=== PATIENT | female | born 1990 | race Caucasian/White ===

== ENCOUNTER 2017-12-08 08:02 | Emergency (ER) | payer OTHER ==
[~2017-12-08] VITALS: Ht 162.6 cm; Wt 82.4 kg
[~2017-12-08 08:02] MED LIST: DOXY25TA8 PO; FOLI800T PO; ONDA4TAB10 SL; PEDICHW50 PO; PYRI50TA77 PO
[2017-12-08 08:05] VITALS: TEMP 36.6; Ht 162.6 cm; Wt 82.4 kg
[2017-12-08] MEDS ORDERED: SODIUM CHLORIDE 0.9% 1000ML 1,000 ML IV STA (08:28)
[2017-12-08] MEDS ORDERED: ONDA4TAB46 PO (08:31)
--- NOTE | 2017-12-08 08:40 | EMERGENCY ROOM VISIT NOTE ---
History First contact with patient: 08:09 Chief Complaint: DEHYDRATION Stated Complaint: DEHYDRATED, 7 WEEKS History of Present Illness The patient is a 27 year old female who presents to the Emergency Room via private vehicle with complaints of "dehydrated, 7 weeks ". The patient states that as of tomorrow she will be 7 weeks , and feels dehydrated. She states that she has been taking Zofran daily, and Unisom B6. She states that her SENIOR CONSULTING MANAGER [place]. She saw him last on Thursday. She had some vaginal spotting at that time. Since then it has not gotten worse it is just a little bit of dark blood in the morning. There is minimal lower pelvic cramping sensation of which she notes may be from not being able to move her bowels. She notes that she is drinking about 16 ounces of water daily. She feels nauseated but no vomiting. She also has some minimal chest tightness and shortness of breath which is not new. There is minimal reflux. This is her first . Review of Systems A complete 10-point Review of Systems was discussed with the patient, with pertinent positives and negatives listed in the History of Present Illness. All remaining Review of Systems questions can be considered negative unless otherwise specified. Past Medical/Surgical History A complete 10-point Review of Systems was discussed with the patient, with pertinent positives and negatives listed in the History of Present Illness. All remaining Review of Systems questions can be considered negative unless otherwise specified. Social History Smoking Status: Never Smoker Current/Historical Medications Scheduled Cephalexin Monohydrate (Keflex), 500 MG PO BID Doxylamine Succinate (Sleep) (Unisom), 1 TAB PO HS Folic Acid (Folic Acid), 1 TAB PO DAILY Pediatric Multiple Vitamin W/ (Flintstones Chewable), 2 TAB PO DAILY Scheduled PRN Ondansetron Hcl (Zofran), 4 MG PO QAM PRN for Nausea Physical Exam Vital Signs Date Time Temp Pulse Resp B/P (MAP) Pulse Ox O2 Delivery O2 Flow Rate FiO2 12/08/17 11:51 76 20 103/64 100 12/08/17 08:05 36.6 80 18 96/64 100 Physical Exam VITAL SIGNS - Vital signs and nursing notes were reviewed. Stable. Slightly hypotensive. GENERAL -27-year-old female appearing her stated age who is in no acute distress. Communicates well with provider and answers questions appropriately. SKIN - Without rashes. No meningeal or petechial rash. HEAD - NC/AT. EYES - PERRL with EOMI bilaterally. Sclera anicteric. EARS - No deformities of external structures noted on gross examination bilaterally. NOSE - Midline and without cyanosis. No epistaxis or purulent drainage noted. MOUTH/OROPHARYNX - Without perioral cyanosis. NECK - Neck with FROM. Supple to palpation. No nuchal rigidity. LUNGS - Chest wall symmetric without accessory muscle use, intercostals retractions, or central cyanosis. Normal vesicular breath sounds CTA B/L. No wheezes, rales, or rhonchi appreciated. CARDIAC - RRR with S1/S2. No murmur, rubs, or gallops appreciated. ABDOMEN - Abdominal contour normal without pulsations or visible masses. BS normoactive all four quadrants. No tenderness, palpable masses, hepatosplenomegaly, or ascites noted. EXTREMITIES - No clubbing or peripheral cyanosis. No pretibial edema present.+5/ 5 strength noted in UE/LE bilaterally. NEUROLOGIC - Cranial nerves II through XII grossly intact. Sensory intact to light touch throughout. PSYCH - A&O, and cooperates fully with examiner. Pt is very pleasant and interacts well with examiner. Medical Decision & Procedures ER Provider Diagnostic Interpretation: <14 WKS SINGLE CLINICAL HISTORY: 27 years-old Female presenting with vaginal spotting, reported estimated gestational age 6 weeks 6 days with estimated date of delivery 07/28/2018; estimated date of delivery 07/26/2018 by prior ultrasound. TECHNIQUE: Real-time grayscale and M-mode Doppler ultrasound imaging of the pelvis was performed using a transabdominal probe. Color and spectral Doppler ultrasound imaging of the adnexa was also performed. COMPARISON: 11/27/2017. FINDINGS: Uterus: Single live intrauterine . [place]-rump length measures 13 mm corresponding to an estimated gestational age of 7 weeks 3 days with an estimated date of delivery 07/25/2018. heart rate 155 beats per minute. Anteverted uterus. Normal amniotic fluid volume. Unable to accurately assess placental implantation secondary to early gestational age. No perigestational fluid to suggest hemorrhage. Cervix long and closed. Right adnexum: Right ovary normal. Right ovary measures 3.2 x 2.0 x 2.2 cm. Normal color Doppler flow and arterial and venous waveforms within the ovarian parenchyma. Left adnexum: Left ovary normal. Left ovary measures 3.5 x 3.3 x 3.5 cm. Normal color Doppler flow and arterial and venous waveforms within the ovarian parenchyma. Other: No free fluid. IMPRESSION: Single live intrauterine with measurements concordant with prior ultrasound. No perigestational hemorrhage is evident. No sonographic abnormality. Electronically signed by: Stefano Daly M.D. 12/08/2017 11:14 AM Dictated Date/Time: 12/08/2017 11:11 AM Laboratory Results 12/08/17 09:30 Red Blood Count 4.44, Mean Corpuscular Volume 89.2, Mean Corpuscular Hemoglobin 32.2, Mean Corpuscular Hemoglobin Concent 36.1, Mean Platelet Volume 11.9, Neutrophils (%) (Auto) 68.1, Lymphocytes (%) (Auto) 23.0, Monocytes (%) (Auto) 8.1, Eosinophils (%) (Auto) 0.4, Basophils (%) (Auto) 0.3, Neutrophils # (Auto) 4.78, Lymphocytes # (Auto) 1.62, Monocytes # (Auto) 0.57, Eosinophils # (Auto) 0.03, Basophils # (Auto) 0.02 12/08/17 09:30 Test 12/08/17 09:30 White Blood Count 7.03 K/uL (4.8-10.8) Red Blood Count 4.44 M/uL (4.2-5.4) Hemoglobin 14.3 g/dL (12.0-16.0) Hematocrit 39.6 % (37-47) Mean Corpuscular Volume 89.2 fL (80-100) Mean Corpuscular Hemoglobin 32.2 pg (25-34) Mean Corpuscular Hemoglobin Concent 36.1 g/dl (32-36) Platelet Count 178 K/uL (130-400) Mean Platelet Volume 11.9 fL (7.4-10.4) Neutrophils (%) (Auto) 68.1 % Lymphocytes (%) (Auto) 23.0 % Monocytes (%) (Auto) 8.1 % Eosinophils (%) (Auto) 0.4 % Basophils (%) (Auto) 0.3 % Neutrophils # (Auto) 4.78 K/uL (1.4-6.5) Lymphocytes # (Auto) 1.62 K/uL (1.2-3.4) Monocytes # (Auto) 0.57 K/uL (0.11-0.59) Eosinophils # (Auto) 0.03 K/uL (0-0.5) Basophils # (Auto) 0.02 K/uL (0-0.2) RDW Standard Deviation 40.5 fL (36.4-46.3) RDW Coefficient of Variation 12.4 % (11.5-14.5) Immature Granulocyte % (Auto) 0.1 % Immature Granulocyte # (Auto) 0.01 K/uL (0.00-0.02) Prothrombin Time 10.7 SECONDS (9.0-12.0) Prothromb Time International Ratio 1.0 (0.9-1.1) Activated Partial Thromboplast Time 26.6 SECONDS (21.0-31.0) Partial Thromboplastin Ratio 1.0 Urine Color DK YELLOW Urine Appearance CLOUDY (CLEAR) Urine pH 5.5 (4.5-7.5) Urine Specific [place] 1.027 (1.000-1.030) Urine Protein NEG (NEG) Urine Glucose (UA) NEG (NEG) Urine Ketones 4+ (NEG) Urine Occult Blood TRACE (NEG) Urine Nitrite NEG (NEG) Urine Bilirubin NEG (NEG) Urine Urobilinogen NEG (NEG) Urine Leukocyte Esterase TRACE (NEG) Urine WBC (Auto) 5-10 /hpf (0-5) Urine RBC (Auto) 0-4 /hpf (0-4) Urine Hyaline Casts (Auto) 1-5 /lpf (0-5) Urine Epithelial Cells (Auto) >30 /lpf (0-5) Urine Bacteria (Auto) 2+ (NEG) Urine Pathogenic Casts /lpf (0) Urine Mucus PRESENT (NONE PRSENT) Anion Gap 6.0 mmol/L (3-11) Est Creatinine Clear Calc Drug Dose 128.3 ml/min Estimated GFR () 139.2 Estimated GFR (Non- 120.1 BUN/Creatinine Ratio 12.6 (10-20) Calcium Level 9.1 mg/dl (8.5-10.1) Total Bilirubin 0.7 mg/dl (0.2-1) Aspartate Amino Transf (AST/SGOT) 14 U/L (15-37) Alanine Aminotransferase (ALT/SGPT) 27 U/L (12-78) Alkaline Phosphatase 45 U/L (45-117) Total Protein 8.0 gm/dl (6.4-8.2) Albumin 4.0 gm/dl (3.4-5.0) Globulin 4.0 gm/dl (2.5-4.0) Albumin/Globulin Ratio 1.0 (0.9-2) Thyroid Stimulating Hormone (TSH) 0.993 uIu/ml (0.300-4.500) Medications Administered Medications (Trade) Dose Ordered Sig/Wilver Route Start Time Stop Time Status Last Admin Dose Admin Sodium Chloride 1,000 ml @ 999 mls/hr Q1H1M STAT IV 12/08/17 08:28 12/08/17 09:28 DC 12/08/17 09:41 999 MLS/HR Medical Decision Patient was seen and evaluated as above. Review was performed of nursing notes and vital signs. After obtaining a thorough history and physical examination the above work up was performed. She presents to us today with what she describes as minimal vaginal bleeding/spotting in the morning. It is a dark brownish almost like dry blood she states. No bright red blood. She notes minimal pelvic discomfort which she believes is secondary to not moving her bowels in 7 days. She notes minimal food intake and fluid since that time. She has been taking Zofran. She feels as though she is dehydrated. I did elect to obtain a ultrasound which was normal. CBC reveals no leukocytosis or anemia. Coags normal. Chemistry panel does reveal slight hyponatremia at 135 and hypokalemia at 3.4. No evidence of kidney or liver failure. TSH normal. The patient's urine reveals 4+ ketones, and trace occult blood. Trace leukocytes, 5-10 white blood cells, greater than 30 epithelial cells and 2+ bacteria with urine mucus. She notes that her SENIOR CONSULTING MANAGER is aware of her vaginal spotting and saw them on Thursday when this began. Given her normal ultrasound, and her normal workup here and after liter of fluid she was feeling much better I believe she is stable for outpatient management. She will be treated for the UTI. I did elect to obtain a bedside EKG which was normal sinus rhythm, rate of 58 bpm. No ectopy or ischemic change. No change compared to previous on 27 November. This was obtained secondary to the patient's complaint of ongoing chest pressure. I do not suspect this to be cardiac in nature. It is better with certain movements. I suspect this to be musculoskeletal. She was offered fecal disimpaction here today however declined , and was recommended to use liquid glycerin Fleet suppositories. She is to call her SENIOR CONSULTING MANAGER upon discharge from here to schedule follow-up. The patient was educated upon management, had questions answered prior to discharge, and was discharged home in good condition. She was educated upon the risk of any medication with . After a thorough discussion and group decision making it was decided that Keflex would be initiated. Of additional note, the patient noted that when she followed with her SENIOR CONSULTING MANAGER of [facility] in [place], on Thursday she was experiencing the vaginal spotting. In our system I do not have record of Rh testing, and did call the on-call OB/ [employer] to ensure that this was performed. I spoke with Dr. Araceli Hearn at 4:46 PM. She informed me that she would check in the system to see if the patient had received this and if this had not been done she notes that they will call the patient to ensure it is completed. Case was discussed with the attending physician. In the evaluation and treatment of this patient the following differential diagnoses were entertained: Miscarriage, UTI, constipation, among others. Impression Primary Impression: Dehydration Additional Impressions: Constipation Hypokalemia Departure Information Dispostion Home / Self-Care Condition GOOD Prescriptions Cephalexin Monohydrate (Keflex) 500 Mg Cap 500 MG PO BID for 7 Days, #14 CAP Prov: Bean Zaidi PA-C 12/08/17 Referrals No Doctor, Assigned (PCP) Patient Instructions Diet High Fiber, My [facility] Additional Instructions You were seen in the emergency department for dehydration and no bowel movement. I recommend a soft diet, with plenty of fiber. Please increase fluids Keflex 500 mg every 12 hours for 7 days. This is for the UTI. As we discussed no medication is absolutely safe in , however after weighing benefit versus risk believe this is reasonable. I recommend a liquid glycerin suppository, please use as directed. Please refer to the attached picture. These can be purchased at a local pharmacy. This is [id number]. If no bowel movement 24 hours please return. Please call your family doctor and your SENIOR CONSULTING MANAGER later today to schedule follow-up. Please inform them upon your visit here and your symptoms. <14 WKS SINGLE CLINICAL HISTORY: 27 years-old Female presenting with vaginal spotting, reported estimated gestational age 6 weeks 6 days with estimated date of delivery 07/28/2018; estimated date of delivery 07/26/2018 by prior ultrasound. TECHNIQUE: Real-time grayscale and M-mode Doppler ultrasound imaging of the pelvis was performed using a transabdominal probe. Color and spectral Doppler ultrasound imaging of the adnexa was also performed. COMPARISON: 11/27/2017. FINDINGS: Uterus: Single live intrauterine . [place]-rump length measures 13 mm corresponding to an estimated gestational age of 7 weeks 3 days with an estimated date of delivery 07/25/2018. heart rate 155 beats per minute. Anteverted uterus. Normal amniotic fluid volume. Unable to accurately assess placental implantation secondary to early gestational age. No perigestational fluid to suggest hemorrhage. Cervix long and closed. Right adnexum: Right ovary normal. Right ovary measures 3.2 x 2.0 x 2.2 cm. Normal color Doppler flow and arterial and venous waveforms within the ovarian parenchyma. Left adnexum: Left ovary normal. Left ovary measures 3.5 x 3.3 x 3.5 cm. Normal color Doppler flow and arterial and venous waveforms within the ovarian parenchyma. Other: No free fluid. IMPRESSION: Single live intrauterine with measurements concordant with prior ultrasound. No perigestational hemorrhage is evident. No sonographic abnormality. Problem Qualifiers
[2017-12-08 09:38] LABS: BASO % 0.3 %; BASO ABS # 0.02 K/uL (0-0.2); EOS % 0.4 %; EOS ABS # 0.03 K/uL (0-0.5); HEMATOCRIT 39.6 % (37-47); HEMOGLOBIN 14.3 g/dL (12.0-16.0); IG# 0.01 K/uL (0.00-0.02); LYMPH ABS # 1.62 K/uL (1.2-3.4); MEAN CELL VOLUME 89.2 fL (80-100); MEAN CORPUSCULAR HEMOGLOBIN 32.2 pg (25-34); MEAN CORPUSCULAR HGB CONC 36.1 g/dl (32-36); MEAN PLATELET VOLUME 11.9 fL (7.4-10.4); MONO % 8.1 %; MONO ABS # 0.57 K/uL (0.11-0.59); NEUT % 68.1 %; NEUT ABS # 4.78 K/uL (1.4-6.5); PLATELET COUNT 178 K/uL (130-400); RED CELL DISTRIBUTION WIDTH CV 12.4 % (11.5-14.5); RED CELL DISTRIBUTION WIDTH SD 40.5 fL (36.4-46.3); WHITE BLOOD COUNT 7.03 K/uL (4.8-10.8)
[2017-12-08 09:46] LABS: PTT PATIENT 26.6 SECONDS (21.0-31.0)
[2017-12-08 09:56] LABS: CALCIUM 9.1 mg/dl (8.5-10.1); CREATININE 0.69 mg/dl (0.60-1.20); POTASSIUM 3.4 mmol/L (3.5-5.1)
--- NOTE | 2017-12-08 11:16 | DIAGNOSTIC IMAGING REPORT ---
<14 WKS SINGLE CLINICAL HISTORY: 27 years-old Female presenting with vaginal spotting, reported estimated gestational age 6 weeks 6 days with estimated date of delivery 07/28/2018; estimated date of delivery 07/26/2018 by prior ultrasound. TECHNIQUE: Real-time grayscale and M-mode Doppler ultrasound imaging of the pelvis was performed using a transabdominal probe. Color and spectral Doppler ultrasound imaging of the adnexa was also performed. COMPARISON: 11/27/2017. FINDINGS: Uterus: Single live intrauterine . [place]-rump length measures 13 mm corresponding to an estimated gestational age of 7 weeks 3 days with an estimated date of delivery 07/25/2018. heart rate 155 beats per minute. Anteverted uterus. Normal amniotic fluid volume. Unable to accurately assess placental implantation secondary to early gestational age. No perigestational fluid to suggest hemorrhage. Cervix long and closed. Right adnexum: Right ovary normal. Right ovary measures 3.2 x 2.0 x 2.2 cm. Normal color Doppler flow and arterial and venous waveforms within the ovarian parenchyma. Left adnexum: Left ovary normal. Left ovary measures 3.5 x 3.3 x 3.5 cm. Normal color Doppler flow and arterial and venous waveforms within the ovarian parenchyma. Other: No free fluid. IMPRESSION: Single live intrauterine with measurements concordant with prior ultrasound. No perigestational hemorrhage is evident. No sonographic abnormality. Electronically signed by: Stefano Daly M.D. 12/08/2017 11:14 AM Dictated Date/Time: 12/08/2017 11:11 AM
[2017-12-08] MEDS ORDERED: CEPH500C PO (11:31)
[2017-12-08 11:51] VITALS: BP 103/64; PULSE 76; O2SAT 100
== END 2017-12-08 11:55 | disposition home or self-care (01) ==
LOC: C.EDB 08:03
DX: O99.89 Other specified diseases and conditions complicating pregnancy, childbirth and the puerperium (principal); Z3A.01 Less than 8 weeks gestation of pregnancy; E86.0 Dehydration; K59.00 Constipation, unspecified; E87.6 Hypokalemia

== ENCOUNTER 2017-12-18 07:25 | Emergency (ER) | payer OTHER ==
[~2017-12-18] VITALS: Ht 162.6 cm; Wt 81.5 kg
[~2017-12-18 07:25] MED LIST changes: -ONDA4TAB10 SL; +ONDA4TAB46 PO; -PYRI50TA77 PO
[2017-12-18 07:30] VITALS: TEMP 36.8; Ht 162.6 cm; Wt 81.5 kg
[2017-12-18] MEDS ORDERED: SODIUM CHLORIDE 0.9% 1000ML 1,000 ML IV STA (07:51)
[2017-12-18] MEDS ORDERED: ONDANSETRON INJ 2 MG/ML 2 ML VIAL IV STA (07:51)
[2017-12-18] MEDS ORDERED: ACETAMINOPHEN IV 100 ML IV ONE (08:00)
[2017-12-18] MEDS ORDERED: BISA1SUP4 PR (08:03)
[2017-12-18] MEDS ORDERED: DOCU100C31 PO (08:03)
[2017-12-18 08:36] LABS: BASO % 0.4 %; BASO ABS # 0.02 K/uL (0-0.2); EOS % 0.6 %; EOS ABS # 0.03 K/uL (0-0.5); HEMATOCRIT 39.1 % (37-47); HEMOGLOBIN 13.7 g/dL (12.0-16.0); IG# 0.01 K/uL (0.00-0.02); LYMPH % 24.3 %; LYMPH ABS # 1.31 K/uL (1.2-3.4); MEAN CELL VOLUME 89.1 fL (80-100); MEAN CORPUSCULAR HEMOGLOBIN 31.2 pg (25-34); MEAN PLATELET VOLUME 11.5 fL (7.4-10.4); MONO ABS # 0.43 K/uL (0.11-0.59); NEUT % 66.5 %; NEUT ABS # 3.58 K/uL (1.4-6.5); PLATELET COUNT 195 K/uL (130-400); RED CELL DISTRIBUTION WIDTH CV 12.6 % (11.5-14.5); RED CELL DISTRIBUTION WIDTH SD 40.2 fL (36.4-46.3); WHITE BLOOD COUNT 5.38 K/uL (4.8-10.8)
[2017-12-18 08:43] LABS: PTT PATIENT 26.1 SECONDS (21.0-31.0)
[2017-12-18 09:00] LABS: CREATININE 0.61 mg/dl (0.60-1.20)
[2017-12-18 09:01] LABS: ALBUMIN 3.6 gm/dl (3.4-5.0); CALCIUM 8.9 mg/dl (8.5-10.1); POTASSIUM 3.4 mmol/L (3.5-5.1)
[2017-12-18 09:03] LABS: TOTAL PROTEIN 7.2 gm/dl (6.4-8.2)
--- NOTE | 2017-12-18 09:15 | DIAGNOSTIC IMAGING REPORT ---
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 cardiac activity is confirmed. There is a small subchorionic hematoma measuring 1.6 cm immediately right lateral of the gestational sac. Right ovary measures 3 cm with normal vascular flow. Left ovary measures 4.5 cm with a complex and/or hemorrhagic 2.6 cm corpus luteum cyst. IMPRESSION: 1. Single, viable intrauterine of approximately 8 weeks 4 days gestational age. 2. A heartbeat is confirmed. 3. Small subchorionic hematoma measuring 1.6 cm. 4. 2.6 cm complex and/or partially hemorrhagic left ovarian corpus luteum cyst. The above report was generated using voice recognition software. It may contain grammatical, syntax or spelling errors. Electronically signed by: Dajuan Booker M.D. 12/18/2017 9:13 AM Dictated Date/Time: 12/18/2017 9:09 AM
[2017-12-18 10:15] VITALS: BP 109/57; PULSE 68; O2SAT 99
--- NOTE | 2017-12-18 14:32 | EMERGENCY ROOM VISIT NOTE ---
ED Visit Note First contact with patient: 07:39 Chief Complaint: Abdominal cramping. History of Present Illness: Ms. Guerrero is a 27-year-old female who ambulates into the ED accompanied by a male friend complaining of abdominal cramping and vaginal spotting. Historically patient is 1 and para 0. Her EDC is July 25 and her LMP was October 05. She has been seen in this emergency department on November 27 for nausea and vomiting and on December 08 for dehydration. She is followed up with her primary care provider. She was found to have constipation and started on glycerin suppositories and stool softeners which she reports has caused her to have a bloody-maureen mucousy bowel movement about once a day since Thursday. Patient reports approximately 5 hours ago when she awoke to get ready for work she developed cramping in the lower abdomen with slight prominence on the right. Since that time she reports her pain is slightly decreased in intensity. Currently she rates her discomfort 6/10. Her pain is nonradiating. She has not identified any aggravating or alleviating factors related to the pain. Associated with her pain she reports she has been nauseated but has not vomited today. She did not have a bowel movement today. She does report she noted bloody vaginal spotting late last night but felt it was related her recent constipation and nausea/vomiting. She has not taken any medications for her discomfort prior to arrival at the hospital. She denies any fevers, chills, sweats, upper respiratory tract symptoms, cough, shortness of breath, upper abdominal pain, back/flank pain, urinary symptoms. Review of Systems: As noted above in history of present illness. All body systems were reviewed and found to be negative as noted above. Past Medical History: As noted above, asthma, vestibular migraines, and wisdom teeth extraction. Current Medications: Medications Dose Route/Sig Max Daily Dose Days Date Category Bisacodyl Laxative (Bisacodyl) 10 Mg Sup 10 Mg ID DAILY PRN 12/18/17 Reported Docusate Sodium 100 Mg Cap 100 Mg PO BID 7 12/18/17 Reported Zofran (Ondansetron HCl) 4 Mg Tab 4 Mg PO QAM PRN 12/08/17 Reported Unisom (Doxylamine Succinate (Sleep)) 25 Mg Tab 25 Mg PO HS 11/27/17 Reported Folic Acid 800 Mcg Tab 800 Mcg PO DAILY 4/20/18 Reported Flintstones Chewable (Pediatric Multiple Vitamin W/) 1 Chw Chw 2 Tab PO DAILY 11/27/17 Reported Allergies to Medications: Patient denies. Social History: Patient is currently employed; she feels safe in her home environment; she denies tobacco and alcohol use. Physical Examination: Vital Signs: Date Time Temp Pulse Resp B/P (MAP) Pulse Ox O2 Delivery O2 Flow Rate FiO2 12/18/17 10:15 68 18 109/57 99 12/18/17 09:21 64 18 98/62 100 Room Air 12/18/17 07:30 36.8 82 20 99/66 97 Room Air GENERAL: 27-year-old female in mild to moderate distress due to symptoms, nontoxic-appearing, afebrile and hemodynamically stable. NEUROLOGICAL: Awake, alert and oriented to person, place and time. Answering questions appropriately and following commands. Normal gait. Good hand eye coordination. No focal motor sensory deficits. SKIN: Warm, dry and pink. No soft tissue eruptions or trauma noted. HEENT: Atraumatic and normocephalic. PERRLA. Sclera white and conjunctiva pink. No drainage from naris. Oral cavity moist and pink. Pharynx is nonerythematous or edematous. Speech normal. No lymphadenopathy. Trachea midline. No jugular venous distention. BACK: No tenderness over the bony spine. No CVA tenderness. THORAX: Lungs sounds are clear to auscultation and equal bilaterally with symmetrical chest wall. No wheezing, rales or rhonchi. No crepitus, tenderness , subcutaneous air or deformities noted. HEART: Regular rate and rhythm. No gallops, rubs or murmurs are appreciated. ABDOMEN: Flat, soft and nontender. Positive bowel sounds in all quadrants. No guarding, rigidity or organomegaly. RECTAL: No external tags or hemorrhoids. Normal rectal tone. No palpable rectal masses. Heme-negative stools. PELVIC: Modified exam. External genitalia appears normal with no lesions or erythema. Vaginal exam is unremarkable with a slight whitish mucus-like drainage. The os was closed and nontender. No blood was noted in the vaginal vault. EXTREMITIES: Moves all extremities well on command and with purpose. All distal neurovascular statuses are intact and equal bilaterally. ED Course: Patient is assessed as noted above. Patient's medication list was reviewed. Laboratory Testing: Test 12/18/17 08:18 Range/Units White Blood Count 5.38 4.8-10.8 K/uL Red Blood Count 4.39 4.2-5.4 M/uL Hemoglobin 13.7 12.0-16.0 g/dL Hematocrit 39.1 37-47 % Mean Corpuscular Volume 89.1 80-100 fL Mean Corpuscular Hemoglobin 31.2 25-34 pg Mean Corpuscular Hemoglobin Concent 35.0 32-36 g/dl Platelet Count 195 130-400 K/uL Mean Platelet Volume 11.5 7.4-10.4 fL Neutrophils (%) (Auto) 66.5 % Lymphocytes (%) (Auto) 24.3 % Monocytes (%) (Auto) 8.0 % Eosinophils (%) (Auto) 0.6 % Basophils (%) (Auto) 0.4 % Neutrophils # (Auto) 3.58 1.4-6.5 K/uL Lymphocytes # (Auto) 1.31 1.2-3.4 K/uL Monocytes # (Auto) 0.43 0.11-0.59 K/uL Eosinophils # (Auto) 0.03 0-0.5 K/uL Basophils # (Auto) 0.02 0-0.2 K/uL RDW Standard Deviation 40.2 36.4-46.3 fL RDW Coefficient of Variation 12.6 11.5-14.5 % Immature Granulocyte % (Auto) 0.2 % Immature Granulocyte # (Auto) 0.01 0.00-0.02 K/uL Prothrombin Time 10.4 9.0-12.0 SECONDS Prothromb Time International Ratio 1.0 0.9-1.1 Activated Partial Thromboplast Time 26.1 21.0-31.0 SECONDS Partial Thromboplastin Ratio 1.0 Urine Color YELLOW Urine Appearance CLOUDY CLEAR Urine pH 7.0 4.5-7.5 Urine Specific [place] 1.017 1.000-1.030 Urine Protein NEG NEG Urine Glucose (UA) NEG NEG Urine Ketones NEG NEG Urine Occult Blood NEG NEG Urine Nitrite NEG NEG Urine Bilirubin NEG NEG Urine Urobilinogen NEG NEG Urine Leukocyte Esterase SMALL NEG Urine WBC (Auto) 1-5 0-5 /hpf Urine RBC (Auto) 5-10 0-4 /hpf Urine Hyaline Casts (Auto) 1-5 0-5 /lpf Urine Epithelial Cells (Auto) >30 0-5 /lpf Urine Bacteria (Auto) 2+ NEG Urine Pathogenic Casts 0-3 GRANULAR CASTS 0 /lpf Sodium Level 137 136-145 mmol/L Potassium Level 3.4 3.5-5.1 mmol/L Chloride Level 105 98-107 mmol/L Carbon Dioxide Level 23 21-32 mmol/L Anion Gap 8.0 3-11 mmol/L Blood Urea Nitrogen 6 7-18 mg/dl Creatinine 0.61 0.60-1.20 mg/dl Est Creatinine Clear Calc Drug Dose 144.4 ml/min Estimated GFR () 145.0 Estimated GFR (Non- 125.1 BUN/Creatinine Ratio 9.1 10-20 Random Glucose 89 70-99 mg/dl Calcium Level 8.9 8.5-10.1 mg/dl Total Bilirubin 0.5 0.2-1 mg/dl Aspartate Amino Transf (AST/SGOT) 11 15-37 U/L Alanine Aminotransferase (ALT/SGPT) 29 12-78 U/L Alkaline Phosphatase 36 45-117 U/L Total Protein 7.2 6.4-8.2 gm/dl Albumin 3.6 3.4-5.0 gm/dl Globulin 3.6 2.5-4.0 gm/dl Albumin/Globulin Ratio 1.0 0.9-2 Human Chorionic Gonadotropin, Quant [id number] mIU/mL Urine Culture: Pending Ultrasound: Was reviewed by myself and read by the radiologist showing a single, viable intrauterine of approximately 8 weeks 4 days gestational age, a confirmed heartbeat, a mall subchorionic hematoma measuring 1.6 cm and a 2.6 cm complex and/or partially hemorrhagic left ovarian corpus luteum cyst. Patient was hydrated with normal saline and received 4 mg of Zofran IV and 1 g of acetaminophen IV. Patient was reassessed multiple times during her stay in the emergency department. Patient's case was reviewed with Dr. Ji; we agreed on diagnostic approach, treatment, disposition and plan. Patient's case was consulted with Shyann Welch LOGISTICS PROJECT MANAGER; he recommended discharge to home, urine culture, continue antinausea medication and acetaminophen for pain and office follow-up. Patient was educated about today's findings and instructed on her treatment plan ; she verbalized understanding and agreement with this plan. Clinical Impression: Threatened miscarriage. Hematochezia. Decision-Making: Initially my differential diagnosis I considered threatened , miscarriage, PID, GI bleed, hemorrhoids and other causes. Disposition: Patient discharged home in stable condition accompanied by a girlfriend; prior to departure she was reassessed and subjectively reported she was feeling much better and rated her discomfort 1/10. Plan: Patient was encouraged to use 650 mg of acetaminophen every 6 hours as needed for pain. Patient was encouraged to stay well-hydrated with increased clear fluids. Patient was encouraged not to lift more than 10 pounds. Patient was encouraged to continue her other medications. Patient was encouraged to use a sanitary pad for definitive count on bleeding. Patient was encouraged to have vaginal rest until followed up with her LOGISTICS PROJECT MANAGER practitioner. Patient was encouraged to call her LOGISTICS PROJECT MANAGER practitioner and inform them about today's ED visit and request follow-up care and treatment. Patient was encouraged return the ED for worsening/uncontrolled pain, worsening bleeding, fevers, worsening bloody stools or any new/concerning symptoms.
== END 2017-12-18 10:16 | disposition home or self-care (01) ==
LOC: C.EDB 07:27
DX: O20.0 Threatened abortion (principal); K92.1 Melena; J45.909 Unspecified asthma, uncomplicated

== ENCOUNTER 2017-12-20 19:33 | Emergency (ER) | payer OTHER ==
[~2017-12-20] VITALS: Ht 162.6 cm; Wt 80.0 kg
[~2017-12-20 19:33] MED LIST changes: +BISA1SUP4 PR; +DOCU100C31 PO
[2017-12-20 19:38] VITALS: TEMP 36.3; Ht 162.6 cm; Wt 80.0 kg
[2017-12-20] MEDS ORDERED: METOCLOPRAMIDE HCL INJ 5 MG/ML 2 ML VIAL IV. STA (19:52)
[2017-12-20] MEDS ORDERED: SODIUM CHLORIDE 0.9% 1000ML 1,000 ML IV STA (19:52)
[2017-12-20] MEDS ORDERED: DiphenhydrAMINE HCL 50 MG/ML VIAL IV STA (19:52)
--- NOTE | 2017-12-20 19:57 | EMERGENCY ROOM VISIT NOTE ---
History Report prepared by Kelli: Mita Summers Under the Supervision of: Dr. Marco A Hernandes M.D. First contact with patient: 19:43 Chief Complaint: DEHYDRATION Stated Complaint: 9 WKS , DEHYDRATION, NAUSEA, VOMITING History of Present Illness The patient is a 27 year old white female with a past medical history of vestibular migraines and vertigo who presents to the ED with a cc of moderate dehydration beginning yesterday. Positive nausea and severe constipation. Negative cough, vomiting, or vaginal bleeding. She states she has taken Zofran and TUMS which did not modify her symptoms. She also states that she cannot even drink a bottle of water. The patient reports she has also been taking suppositories for her constipation and relates this to her abdominal cramping. She is also currently 9 weeks . Source of History: patient Onset: yesterday Position: abdomen Symptom Intensity: moderate Associated Symptoms: + nausea, No cough, No vomiting Note: Positive severe constipation. Negative vaginal bleeding. Review of Systems See HPI for pertinent positives and negatives. A total of ten systems were reviewed and were otherwise negative. Past Medical & Surgical Medical Problems: (1) Asthma Asthma Family History Cancer Heart disease Social History Smoking Status: Former Smoker Smokeless Tobacco Use: No Drug Use: none Marital Status: Housing Status: lives with significant other Occupation Status: employed Current/Historical Medications Scheduled Docusate Sodium (Docusate Sodium), 100 MG PO BID Folic Acid (Folic Acid), 800 MCG PO DAILY Pediatric Multiple Vitamin W/ (Flintstones Chewable), 2 TAB PO DAILY Scheduled PRN Bisacodyl (Bisacodyl Laxative), 10 MG MT DAILY PRN for Constipation Doxylamine Succinate (Sleep) (Unisom), 25 MG PO HS PRN for PRN Metoclopramide (Reglan), 10 MG PO Q6H PRN for Nausea Ondansetron Hcl (Zofran), 4 MG PO QAM PRN for Nausea Allergies Coded Allergies: No Known Allergies (Unverified , 12/20/17) Physical Exam Vital Signs Date Time Temp Pulse Resp B/P (MAP) Pulse Ox O2 Delivery O2 Flow Rate FiO2 12/20/17 22:37 78 18 101/61 99 12/20/17 21:36 80 18 106/69 100 Room Air 12/20/17 19:38 36.3 95 20 123/80 98 Room Air Physical Exam GENERAL: Awake, alert, well-appearing, NAD. Midly uncomfortable in appearance. HENT: Normocephalic, atraumatic. EYES: Normal conjunctiva. Sclera non-icteric. PERRL. No anisocoria. NECK: Supple. No nuchal rigidity. FROM. RESPIRATORY: CTAB, no rhonchi, wheezing, crackles CARDIAC: RRR, no MRG ABDOMEN: Soft, NTND, BS+. Mild epigastric discomfort. Not peritonitic. Negative obturators. Negative psoas. BACK: No CVA TTP MSK: No chest wall TTP, no LE edema NEURO: GCS 15, CN 2-12 intact, moves all 4s on command SKIN: No rash or jaundice noted. Medical Decision & Procedures Laboratory Results 12/20/17 20:00 Red Blood Count 4.41, Mean Corpuscular Volume 87.1, Mean Corpuscular Hemoglobin 32.4, Mean Corpuscular Hemoglobin Concent 37.2, Mean Platelet Volume 11.7, Neutrophils (%) (Auto) 73.9, Lymphocytes (%) (Auto) 17.3, Monocytes (%) (Auto) 8.2, Eosinophils (%) (Auto) 0.2, Basophils (%) (Auto) 0.2, Neutrophils # (Auto) 6.56, Lymphocytes # (Auto) 1.54, Monocytes # (Auto) 0.73, Eosinophils # (Auto) 0.02, Basophils # (Auto) 0.02 12/20/17 20:00 Test 12/20/17 20:00 12/20/17 21:35 White Blood Count 8.89 K/uL (4.8-10.8) Red Blood Count 4.41 M/uL (4.2-5.4) Hemoglobin 14.3 g/dL (12.0-16.0) Hematocrit 38.4 % (37-47) Mean Corpuscular Volume 87.1 fL (80-100) Mean Corpuscular Hemoglobin 32.4 pg (25-34) Mean Corpuscular Hemoglobin Concent 37.2 g/dl (32-36) Platelet Count 225 K/uL (130-400) Mean Platelet Volume 11.7 fL (7.4-10.4) Neutrophils (%) (Auto) 73.9 % Lymphocytes (%) (Auto) 17.3 % Monocytes (%) (Auto) 8.2 % Eosinophils (%) (Auto) 0.2 % Basophils (%) (Auto) 0.2 % Neutrophils # (Auto) 6.56 K/uL (1.4-6.5) Lymphocytes # (Auto) 1.54 K/uL (1.2-3.4) Monocytes # (Auto) 0.73 K/uL (0.11-0.59) Eosinophils # (Auto) 0.02 K/uL (0-0.5) Basophils # (Auto) 0.02 K/uL (0-0.2) RDW Standard Deviation 39.7 fL (36.4-46.3) RDW Coefficient of Variation 12.4 % (11.5-14.5) Immature Granulocyte % (Auto) 0.2 % Immature Granulocyte # (Auto) 0.02 K/uL (0.00-0.02) Anion Gap 11.0 mmol/L (3-11) Est Creatinine Clear Calc Drug Dose 134.3 ml/min Estimated GFR () 142.0 Estimated GFR (Non- 122.5 BUN/Creatinine Ratio 11.2 (10-20) Calcium Level 9.6 mg/dl (8.5-10.1) Total Bilirubin 0.6 mg/dl (0.2-1) Aspartate Amino Transf (AST/SGOT) 13 U/L (15-37) Alanine Aminotransferase (ALT/SGPT) 26 U/L (12-78) Alkaline Phosphatase 40 U/L (45-117) Total Protein 7.5 gm/dl (6.4-8.2) Albumin 3.8 gm/dl (3.4-5.0) Globulin 3.7 gm/dl (2.5-4.0) Albumin/Globulin Ratio 1.0 (0.9-2) Human Chorionic Gonadotropin, Quant [id number] mIU/mL Urine Color YELLOW Urine Appearance ERROR (CLEAR) Urine pH 6.5 (4.5-7.5) Urine Specific [place] 1.014 (1.000-1.030) Urine Protein NEG (NEG) Urine Glucose (UA) NEG (NEG) Urine Ketones 2+ (NEG) Urine Occult Blood NEG (NEG) Urine Nitrite NEG (NEG) Urine Bilirubin NEG (NEG) Urine Urobilinogen NEG (NEG) Urine Leukocyte Esterase LARGE (NEG) Urine WBC (Auto) 10-30 /hpf (0-5) Urine RBC (Auto) 0-4 /hpf (0-4) Urine Hyaline Casts (Auto) 0 /lpf (0-5) Urine Epithelial Cells (Auto) >30 /lpf (0-5) Urine Bacteria (Auto) 2+ (NEG) Urine Crystals CALCIUM OXALATE (NONE Urine Pathogenic Casts /lpf (0) Urine Mucus PRESENT (NONE PRSENT) Laboratory results reviewed by me Medications Administered Medications (Trade) Dose Ordered Sig/[place] Route Start Time Stop Time Status Last Admin Dose Admin Sodium Chloride 1,000 ml @ 999 mls/hr Q1H1M STAT IV 12/20/17 19:52 12/20/17 20:52 DC 12/20/17 20:07 999 MLS/HR Metoclopramide HCl (Reglan Inj) 10 mg NOW STAT IV. 12/20/17 19:52 12/20/17 19:55 DC 12/20/17 20:07 10 MG Diphenhydramine HCl (Benadryl Inj) 25 mg NOW STAT IV 12/20/17 19:52 12/20/17 19:55 DC 12/20/17 20:07 25 MG Metoclopramide HCl (Reglan Tab) 10 mg NOW PO 12/20/17 21:45 12/20/17 22:49 DC 12/20/17 22:34 10 MG ED Course 1946: The patient was evaluated in room A10. A complete history and physical exam was performed. 1951: Ordered Benadryl Inj 25 mg, Reglan Inj 10 mcg IV, Sodium Chloride 1000 ml @ 999 mls/hr IV 2012: I performed a bedside ultrasound at this time. FHR sounds were positive. The patient also feels better. 2129: I checked on the patient at this time. She feels much better. 2144: Ordered Reglan Tab 10 mg PO 2147: I reevaluated the patient. Discussed results and discharge instructions: She verbalized understanding and agreement. The patient is ready for discharge. Medical Decision The patient is a 27 year old white female with a past medical history of vestibular migraines and vertigo who presents to the ED with a cc of dehydration beginning yesterday. Positive nausea and severe constipation. Negative cough, vomiting, or vaginal bleeding. Differential diagnosis: Etiologies such as appendicitis, diverticulitis, PUD, biliary pathology, UTI, pancreatitis, obstruction, mesenteric ischemia, aortic pathology, infections, inflammatory bowel disease, renal colic, as well as others were entertained. Patient was seen and evaluated the bedside. Patient does have prior history is a approximately 9 weeks gestation. The patient denies any vaginal bleeding. She has had some constipation issues and feels as though she is dehydrated. Patiently recently completed antibiotics approximately prior for UTI. Patient states that she tried Zofran without much relief. Patient did have blood work completed along with a beta hCG and urinalysis. Patient blood work is fairly unremarkable. Kidney function normal. LFTs and lipase within normal limits. Beta-hCG greater than 100,000. I did perform a bedside ultrasound which did show good heart tones at 170. I did discuss with the patient that this is a touch higher than normal however it should improve with hydration. Patient was feeling improved upon reassessment the patient was told of the findings. Patient was given Reglan for home. Patient was also told she may take Tylenol and/or Benadryl to help with discomfort. Patient's urinalysis did show positive bacteria with leuks and WBCs without nitrite. Given this and her recent treatment with Keflex and lack of urinary symptoms I did have this sent for culture. No treatment at this time but pending urine culture and sensitivities. Patient was deemed suitable for outpatient follow-up treatment at this time. Patient was given strict follow-up , discharge, and return precautions. All questions were answered. Patient was deemed suitable for outpatient follow-up at this time. Patient agreed with the plan of care and was safely discharged home. Medication Reconcilliation Current Medication List: was personally reviewed by me Blood Pressure Screening Patient's blood pressure: Normal blood pressure Blood pressure disposition: Did not require urgent referral Impression Primary Impression: related nausea, antepartum Additional Impression: Hypokalemia Scribe Attestation The scribe's documentation has been prepared under my direction and personally reviewed by me in its entirety. I confirm that the note above accurately reflects all work, treatment, procedures, and medical decision making performed by me. Departure Information Dispostion Home / Self-Care Prescriptions Metoclopramide (Reglan) 10 Mg Tab 10 MG PO Q6H Y for Nausea, #12 TAB Prov: Marco A Hernandes M.D. 12/20/17 Referrals No Doctor, Assigned (PCP) Forms HOME CARE DOCUMENTATION FORM, IMPORTANT VISIT INFORMATION, WORK / SCHOOL INSTRUCTIONS Patient Instructions My Delio Sorto, Nausea Vomit Control Additional Instructions Please return to the emergency department if you have worsening or recurrent symptoms not amenable to at-home treatment. Please call for a follow-up appointment with her primary care physician. Please take your medications as prescribed. If you have other concerns and/or complaints please feel free to also call your primary care physician's office or return the ED for further evaluation, management, and treatment. You may take tylenol 1000 mg every 6 hours as needed for pain/fever unless told by your physician to not take it or have liver problems. You may consider taking Benadryl in addition to the Reglan to help with your nausea. Please continue to hydrate liberally with clear liquids. Consider a bland diet and advance as tolerated. Take your medications as prescribed. You have been examined and treated today on an emergency basis only. This is not a substitute for, or an effort to provide, complete comprehensive medical care. It is impossible to recognize and treat all injuries or illnesses in a single emergency department visit. It is therefore important that you follow up closely with [facility], your PCP, and/or your specialist(s). Call as soon as possible for an appointment. Thank you for your time and consideration. I look forward to speaking with you again soon. Please don't hesitate to call us if you have any questions. Problem Qualifiers
[2017-12-20 20:12] LABS: BASO % 0.2 %; BASO ABS # 0.02 K/uL (0-0.2); EOS % 0.2 %; EOS ABS # 0.02 K/uL (0-0.5); HEMATOCRIT 38.4 % (37-47); HEMOGLOBIN 14.3 g/dL (12.0-16.0); IG# 0.02 K/uL (0.00-0.02); LYMPH % 17.3 %; LYMPH ABS # 1.54 K/uL (1.2-3.4); MEAN CELL VOLUME 87.1 fL (80-100); MEAN CORPUSCULAR HEMOGLOBIN 32.4 pg (25-34); MEAN CORPUSCULAR HGB CONC 37.2 g/dl (32-36); MEAN PLATELET VOLUME 11.7 fL (7.4-10.4); MONO % 8.2 %; MONO ABS # 0.73 K/uL (0.11-0.59); NEUT % 73.9 %; NEUT ABS # 6.56 K/uL (1.4-6.5); PLATELET COUNT 225 K/uL (130-400); RED CELL DISTRIBUTION WIDTH CV 12.4 % (11.5-14.5); RED CELL DISTRIBUTION WIDTH SD 39.7 fL (36.4-46.3); WHITE BLOOD COUNT 8.89 K/uL (4.8-10.8)
[2017-12-20 20:34] LABS: ALBUMIN 3.8 gm/dl (3.4-5.0); CALCIUM 9.6 mg/dl (8.5-10.1); CREATININE 0.65 mg/dl (0.60-1.20); POTASSIUM 3.3 mmol/L (3.5-5.1)
[2017-12-20 20:37] LABS: TOTAL PROTEIN 7.5 gm/dl (6.4-8.2)
[2017-12-20] MEDS ORDERED: METO-157 PO (21:37)
[2017-12-20] MEDS ORDERED: METOCLOPRAMIDE HCL 10 MG TAB PO SCH (21:45)
[2017-12-20 22:37] VITALS: BP 101/61; PULSE 78; O2SAT 99
== END 2017-12-20 22:37 | disposition home or self-care (01) ==
LOC: C.EDB 19:33
DX: O26.891 Other specified pregnancy related conditions, first trimester (principal); R11.0 Nausea; O99.281 Endocrine, nutritional and metabolic diseases complicating pregnancy, first trimester; E87.6 Hypokalemia; O99.511 Diseases of the respiratory system complicating pregnancy, first trimester; J45.909 Unspecified asthma, uncomplicated; Z3A.09 9 weeks gestation of pregnancy; Z87.891 Personal history of nicotine dependence

== ENCOUNTER 2017-12-22 06:42 | Emergency (ER) | payer OTHER ==
[~2017-12-22 06:42] MED LIST changes: +METO-157 PO
[2017-12-22 06:44] VITALS: TEMP 36.6; Ht 162.6 cm
[2017-12-22] MEDS ORDERED: PROCHLORPERAZINE 5 MG/ML 2 ML VIAL IV STA (06:52)
[2017-12-22] MEDS ORDERED: SODIUM CHLORIDE 0.9% 1000ML 1,000 ML IV STA (06:52)
[2017-12-22] MEDS ORDERED: DiphenhydrAMINE HCL 50 MG/ML VIAL IV STA (06:52)
--- NOTE | 2017-12-22 06:56 | EMERGENCY ROOM VISIT NOTE ---
History Report prepared by Kelli: Jacob Macario Under the Supervision of: Dr. Balta Patino M.D. First contact with patient: 06:47 Chief Complaint: DEHYDRATION Stated Complaint: 9 WKS,DEHYDRATION,CRAMPING Nursing Triage Summary: pt reports she is 9 weeks . pt reports nausea and vomitting which is uncontrolled with zofran and reglan at home History of Present Illness The patient is a 27 year old female who presents to the Emergency Room with complaints of persistent nausea and vomiting that began 5 days ago. The patient last vomited yesterday morning, but she states that she has not been eating/ drinking secondary to her nausea. She is currently 9 weeks , and is experiencing some intermittent lower abdominal "cramping." She was also noticing some vaginal spotting, which has resolved at this time. The patient has already visited the ER for these symptoms and was giving Zofran and Reglan. These medications have not improved her symptoms. Source of History: patient Onset: 5 days ago Position: abdomen Quality: cramping, other (N/V) Timing: other (Persistent N/V) Associated Symptoms: + urinary symptoms (Vaginal spotting - resolved) Review of Systems See HPI for pertinent positives & negatives. A total of 10 systems reviewed and were otherwise negative. Past Medical & Surgical Medical Problems: (1) Asthma Family History Cancer Heart disease Social History Smoking Status: Former Smoker Drug Use: none Marital Status: Housing Status: lives with significant other Occupation Status: employed Current/Historical Medications Scheduled Docusate Sodium (Docusate Sodium), 100 MG PO BID Doxylamine-Pyridoxine (Diclegis), 2 TAB PO HS Folic Acid (Folic Acid), 800 MCG PO DAILY Pediatric Multiple Vitamin W/ (Flintstones Chewable), 2 TAB PO DAILY Scheduled PRN Bisacodyl (Bisacodyl Laxative), 10 MG [place] DAILY PRN for Constipation Doxylamine Succinate (Sleep) (Unisom), 25 MG PO HS PRN for PRN Metoclopramide (Reglan), 10 MG PO Q6H PRN for Nausea Ondansetron Hcl (Zofran), 4 MG PO QAM PRN for Nausea Allergies Coded Allergies: No Known Allergies (Unverified , 12/22/17) Physical Exam Vital Signs Date Time Temp Pulse Resp B/P (MAP) Pulse Ox O2 Delivery O2 Flow Rate FiO2 12/22/17 07:48 84 18 109/57 99 Room Air 12/22/17 07:15 83 12/22/17 07:11 86 18 104/57 100 Room Air 12/22/17 07:08 95 12/22/17 06:44 36.6 91 20 104/63 97 Room Air Physical Exam GENERAL: Awake, alert, well-appearing, in no acute distress HENT: Normocephalic, atraumatic. Oropharynx unremarkable. EYES: Normal conjunctiva. Sclera non-icteric. NECK: Supple. No nuchal rigidity. FROM. No JVD. RESPIRATORY: Clear to auscultation. CARDIAC: Regular rate, normal rhythm. Extremities warm and well perfused. Pulses equal. ABDOMEN: Soft, non-distended. No tenderness to palpation. No rebound or guarding. No masses. RECTAL: Deferred. MUSCULOSKELETAL: Chest examination reveals no tenderness. The back is symmetrical on inspection without obvious abnormality. There is no CVA tenderness to palpation. No joint edema. LOWER EXTREMITIES: Calves are equal size bilaterally and non-tender. No edema. No discoloration. NEURO: Normal sensorium. No sensory or motor deficits noted. SKIN: No rash or jaundice noted. Medical Decision & Procedures Laboratory Results 12/22/17 07:00 Red Blood Count 4.50, Mean Corpuscular Volume 88.4, Mean Corpuscular Hemoglobin 31.6, Mean Corpuscular Hemoglobin Concent 35.7, Mean Platelet Volume 11.2, Neutrophils (%) (Auto) 73.7, Lymphocytes (%) (Auto) 17.3, Monocytes (%) (Auto) 8.3, Eosinophils (%) (Auto) 0.1, Basophils (%) (Auto) 0.3, Neutrophils # (Auto) 5.07, Lymphocytes # (Auto) 1.19, Monocytes # (Auto) 0.57, Eosinophils # (Auto) 0.01, Basophils # (Auto) 0.02 12/22/17 07:00 Test 12/22/17 07:00 12/22/17 08:00 White Blood Count 6.88 K/uL (4.8-10.8) Red Blood Count 4.50 M/uL (4.2-5.4) Hemoglobin 14.2 g/dL (12.0-16.0) Hematocrit 39.8 % (37-47) Mean Corpuscular Volume 88.4 fL (80-100) Mean Corpuscular Hemoglobin 31.6 pg (25-34) Mean Corpuscular Hemoglobin Concent 35.7 g/dl (32-36) Platelet Count 204 K/uL (130-400) Mean Platelet Volume 11.2 fL (7.4-10.4) Neutrophils (%) (Auto) 73.7 % Lymphocytes (%) (Auto) 17.3 % Monocytes (%) (Auto) 8.3 % Eosinophils (%) (Auto) 0.1 % Basophils (%) (Auto) 0.3 % Neutrophils # (Auto) 5.07 K/uL (1.4-6.5) Lymphocytes # (Auto) 1.19 K/uL (1.2-3.4) Monocytes # (Auto) 0.57 K/uL (0.11-0.59) Eosinophils # (Auto) 0.01 K/uL (0-0.5) Basophils # (Auto) 0.02 K/uL (0-0.2) RDW Standard Deviation 40.3 fL (36.4-46.3) RDW Coefficient of Variation 12.5 % (11.5-14.5) Immature Granulocyte % (Auto) 0.3 % Immature Granulocyte # (Auto) 0.02 K/uL (0.00-0.02) Anion Gap 9.0 mmol/L (3-11) Estimated GFR () > 150.0 Estimated GFR (Non- 129.5 BUN/Creatinine Ratio 13.8 (10-20) Calcium Level 9.1 mg/dl (8.5-10.1) Total Bilirubin 0.8 mg/dl (0.2-1) Direct Bilirubin 0.2 mg/dl (0-0.2) Aspartate Amino Transf (AST/SGOT) 13 U/L (15-37) Alanine Aminotransferase (ALT/SGPT) 26 U/L (12-78) Alkaline Phosphatase 37 U/L (45-117) Total Protein 7.3 gm/dl (6.4-8.2) Albumin 3.6 gm/dl (3.4-5.0) Lipase 107 U/L (73-393) Human Chorionic Gonadotropin, Quant 65743 mIU/mL Urine Color YELLOW Urine Appearance CLOUDY (CLEAR) Urine pH 6.0 (4.5-7.5) Urine Specific [place] 1.022 (1.000-1.030) Urine Protein NEG (NEG) Urine Glucose (UA) NEG (NEG) Urine Ketones 4+ (NEG) Urine Occult Blood NEG (NEG) Urine Nitrite NEG (NEG) Urine Bilirubin NEG (NEG) Urine Urobilinogen NEG (NEG) Urine Leukocyte Esterase MODERATE (NEG) Urine WBC (Auto) 5-10 /hpf (0-5) Urine RBC (Auto) 0-4 /hpf (0-4) Urine Hyaline Casts (Auto) /lpf (0-5) Urine Epithelial Cells (Auto) >30 /lpf (0-5) Urine Bacteria (Auto) 2+ (NEG) Urine Pathogenic Casts /lpf (0) Labs reviewed by ED physician. Medications Administered Medications (Trade) Dose Ordered Sig/[place] Route Start Time Stop Time Status Last Admin Dose Admin Sodium Chloride 1,000 ml @ 999 mls/hr Q1H1M STAT IV 12/22/17 06:52 12/22/17 07:52 DC 12/22/17 07:05 999 MLS/HR Prochlorperazine Edisylate (Compazine Inj) 10 mg NOW STAT IV 12/22/17 06:52 12/22/17 06:54 DC 12/22/17 07:06 10 MG Diphenhydramine HCl (Benadryl Inj) 50 mg NOW STAT IV 12/22/17 06:52 12/22/17 06:54 DC 12/22/17 07:06 50 MG Potassium Chloride (Klor-Con M10) 40 meq STK-MED ONCE .ROUTE 12/22/17 07:45 12/22/17 07:46 DC 12/22/17 07:47 40 MEQ ED Course 0648: Past medical records reviewed. The patient was evaluated in room A2. A complete history and physical examination was performed. 0652: Benadryl 50 mg IV, Compazine 10 mg IV, Sodium Chloride 1000 mL @ 999 mL/ hr IV. 0738: Ordered Potassium Chloride 40 meq PO. 0800: Upon reexamination the patient is resting in bed. I discussed results and treatment plan with the patient. She verbalizes agreement and understanding. The patient is ready for discharge. Medical Decision Triage Nursing summary, as well as ancillary records, past medical history, and medication lists were reviewed. Differential diagnosis: Etiologies such as gastroenteritis, food borne illness, infections, appendicitis , diverticulitis, inflammatory bowel disease, obstruction, GI bleed, biliary pathology, as well as others were entertained. This is a 27-year-old female presents the emergency department complaining of nausea and vomiting related to . The patient last took Reglan sometime this morning. In the emergency department patient had serial abdominal examinations and at no time to the patient exhibited abdominal tenderness or surgical abdomen. I will note she has a normal CBC normal renal profile. Her potassium is 3.3. The patient was given Compazine and Benadryl using shared medical decision making in the emergency department along with a normal saline bolus. I will note that the patient was able to tolerate p.o. Gatorade as well as p.o. potassium. Based on this I feel that the patient is well enough to be discharged home. In addition the patient was also given diclegis. 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 Patient was in agreement with the treatment plan. Medication Reconcilliation Current Medication List: was personally reviewed by me Blood Pressure Screening Patient's blood pressure: Normal blood pressure Impression Primary Impression: Emesis Additional Impressions: Hypokalemia Scribe Attestation The scribe's documentation has been prepared under my direction and personally reviewed by me in its entirety. I confirm that the note above accurately reflects all work, treatment, procedures, and medical decision making performed by me. Departure Information Dispostion Home / Self-Care Prescriptions Doxylamine-Pyridoxine (DICLEGIS) 1 Tab Tab 2 TAB PO HS for 10 Days, #20 TAB Prov: Balta Patino MD 12/22/17 Referrals No Doctor, Assigned (PCP) Forms HOME CARE DOCUMENTATION FORM, IMPORTANT VISIT INFORMATION, WORK / SCHOOL INSTRUCTIONS Patient Instructions My [facility] Additional Instructions You have been examined and treated today on an emergency basis only. This is not a substitute for, or an effort to provide, complete comprehensive medical care. It is impossible to recognize and treat all injuries or illnesses in a single emergency department visit. It is therefore important that you follow up closely with your PCP. Call as soon as possible for an appointment. Thank you for your time and consideration. I look forward to speaking with you again soon. Please don't hesitate to call us if you have any questions. Problem Qualifiers Primary Impression: Emesis Vomiting type: unspecified Vomiting Intractability: unspecified Nausea presence: unspecified Qualified Codes: R11.10 - Vomiting, unspecified Additional Impressions: Weeks of gestation: 8 weeks Qualified Codes: Z3A.08 - 8 weeks gestation of
[2017-12-22 07:08] VITALS: O2SAT 95
[2017-12-22 07:10] LABS: BASO % 0.3 %; BASO ABS # 0.02 K/uL (0-0.2); EOS % 0.1 %; EOS ABS # 0.01 K/uL (0-0.5); HEMATOCRIT 39.8 % (37-47); HEMOGLOBIN 14.2 g/dL (12.0-16.0); IG# 0.02 K/uL (0.00-0.02); LYMPH % 17.3 %; LYMPH ABS # 1.19 K/uL (1.2-3.4); MEAN CELL VOLUME 88.4 fL (80-100); MEAN CORPUSCULAR HEMOGLOBIN 31.6 pg (25-34); MEAN CORPUSCULAR HGB CONC 35.7 g/dl (32-36); MEAN PLATELET VOLUME 11.2 fL (7.4-10.4); MONO % 8.3 %; MONO ABS # 0.57 K/uL (0.11-0.59); NEUT % 73.7 %; NEUT ABS # 5.07 K/uL (1.4-6.5); PLATELET COUNT 204 K/uL (130-400); RED CELL DISTRIBUTION WIDTH CV 12.5 % (11.5-14.5); RED CELL DISTRIBUTION WIDTH SD 40.3 fL (36.4-46.3); WHITE BLOOD COUNT 6.88 K/uL (4.8-10.8)
[2017-12-22 07:32] LABS: ALBUMIN 3.6 gm/dl (3.4-5.0); ALT/SGPT 26 U/L (12-78); AST/SGOT 13 U/L (15-37); BLOOD UREA NITROGEN 8 mg/dl (7-18); CALCIUM 9.1 mg/dl (8.5-10.1); CARBON DIOXIDE 22 mmol/L (21-32); CREATININE 0.55 mg/dl (0.60-1.20); GLUCOSE 84 mg/dl (70-99); LIPASE 107 U/L (73-393); POTASSIUM 3.3 mmol/L (3.5-5.1); SODIUM 135 mmol/L (136-145)
[2017-12-22 07:35] LABS: ALKALINE PHOSPHATASE 37 U/L (45-117); TOTAL PROTEIN 7.3 gm/dl (6.4-8.2)
[2017-12-22] MEDS ORDERED: POTASSIUM CHLORIDE 20 MEQ TABCR PO STA (07:38)
[2017-12-22] MEDS ORDERED: POTASSIUM CHLORIDE 10 MEQ TABCR ONE (07:45)
[2017-12-22 07:48] VITALS: BP 109/57; PULSE 84; O2SAT 99
[2017-12-22] MEDS ORDERED: DOXY30TA PO (07:51)
== END 2017-12-22 08:14 | disposition home or self-care (01) ==
LOC: C.EDB 06:43 → C.EDA 08:14
DX: O99.89 Other specified diseases and conditions complicating pregnancy, childbirth and the puerperium (principal); R11.2 Nausea with vomiting, unspecified; E87.6 Hypokalemia; Z3A.08 8 weeks gestation of pregnancy; J45.909 Unspecified asthma, uncomplicated; Z80.9 Family history of malignant neoplasm, unspecified; Z87.891 Personal history of nicotine dependence; Z79.899 Other long term (current) drug therapy